=== PATIENT | male | born 1945 | race Caucasian/White ===

== ENCOUNTER 2016-11-02 22:41 | Emergency (ER) | payer MEDICARE ==
[2016-11-03 00:19] VITALS: BP 145/75
[2016-11-03] MEDS ORDERED: MOTRIN PO ONE (02:12)
[2016-11-03] MEDS ORDERED: TYLENOL PO ONE (02:18)
[2016-11-03] MEDS ORDERED: TYLENOL ONE (02:23)
--- NOTE | 2016-11-03 02:36 | Emergency Department Report ---
HPI - General Chief Complaint: Allergic Reaction Time Seen by Provider: 11/03/16 01:34 ED Past Medical Hx - Social History Smoking Status: Never Smoker Substance Use Type: None - Medications Home Medications: Home Medications Medication Instructions Recorded Confirmed Last Taken Type Cephalexin [Keflex] 500 mg PO Q12HR #10 cap 11/03/16 Unknown Rx EPINEPHrine (NF) [Epipen (Nf)] 0.3 mg IM ONCE PRN #1 syringekit 11/03/16 Unknown Rx Ibuprofen [Motrin] 600 mg PO Q8H PRN #20 tablet 11/03/16 Unknown Rx diphenhydrAMINE [Benadryl CAP] 25 mg PO Q6HR PRN #20 capsule 11/03/16 Unknown Rx ED Review of Systems ROS: Stated complaint: WASP STING Other details as noted in HPI Physical Exam - Physical Exam Vital Signs: Vital Signs 11/02/16 11/03/16 22:53 00:18 Temperature 98.0 F 97.8 F Pulse Rate 75 68 Respiratory 18 17 Rate Blood Pressure 114/63 Blood Pressure 145/75 [Left] O2 Sat by Pulse 97 98 Oximetry ED Course Vital Signs 11/02/16 11/03/16 22:53 00:18 Temperature 98.0 F 97.8 F Pulse Rate 75 68 Respiratory 18 17 Rate Blood Pressure 114/63 Blood Pressure 145/75 [Left] O2 Sat by Pulse 97 98 Oximetry Critical care attestation.: If time is entered above; I have spent that time in minutes in the direct care of this critically ill patient, excluding procedure time. ED Disposition Clinical Impression: Wasp sting Qualifiers: Encounter type: initial encounter Injury intent: accidental or unintentional Qualified Code(s): T63.461A - Toxic effect of venom of wasps, accidental ( unintentional), initial encounter Disposition: DC-01 TO HOME OR SELFCARE Is pt being admited?: No Does the pt Need Aspirin: No Condition: Stable Instructions: Insect Bite or Sting (ED) Prescriptions: Cephalexin [Keflex] 500 mg PO Q12HR #10 cap diphenhydrAMINE [Benadryl CAP] 25 mg PO Q6HR PRN #20 capsule PRN Reason: Itching EPINEPHrine (NF) [Epipen (Nf)] 0.3 mg IM ONCE PRN #1 syringekit PRN Reason: Anaphylaxis Ibuprofen [Motrin] 600 mg PO Q8H PRN #20 tablet PRN Reason: Pain Referrals: [facility] [Provider Group] - 3-5 Days [facility] [Outside] - 3-5 Days Forms: Work/School Release Form(ED) Time of Disposition: 02:12
== END 2016-11-03 02:21 | disposition home or self-care (01) ==
LOC: ED 22:41
DX: T63.461A Toxic effect of venom of wasps, accidental (unintentional), initial encounter (principal); X58.XXXA Exposure to other specified factors, initial encounter
CPT/HCPCS: 99282

== ENCOUNTER 2017-02-09 09:21 | Day surgery (SDC) | payer MEDICARE ==
[2017-02-08 09:34] LABS: Basophils % (Auto) 0.2 % (0.0-1.8); Eosinophils % (Auto) 2.8 % (0.0-4.3); Hematocrit 45.6 % (35.5-45.6); Hemoglobin 15.2 gm/dl (11.8-15.2); Mean Corpuscular HGB Conc 33 % (32-34); Mean Corpuscular Hemoglobin 30 pg (28-32); Mean Corpuscular Volume 90 fl (84-94); Platelet Count 180 K/mm3 (140-440); Red Blood Count 5.08 M/mm3 (3.65-5.03); Red Cell Distribution Width 14.2 % (13.2-15.2)
--- NOTE | 2017-02-08 09:43 | Anesthesia Consultation ---
Anesthesia Consult and Med Hx Date of service: 02/08/17 - Airway Anesthetic Teeth Evaluation: Poor ROM Head & Neck: Adequate Mental/Hyoid Distance: Adequate Mallampati Class: Class II Intubation Access Assessment: Probably Good - Pulmonary Exam CTA: Yes - Cardiac Exam Cardiac Exam: RRR - Pre-Operative Health Status ASA Pre-Surgery Classification: ASA2 Proposed Anesthetic Plan: General (no previous anesthesia - no one in family ever had anesthesia) - Cardiovascular System Hx Hypertension: Yes (takes beat gerri; pt told to take AM of surgery) Hx Coronary Artery Disease: No (EF 55%, clearance at low risk for cardiac event , mild mitral regurg) - Central Nervous System Hx Neuromuscular Disorder: No (BPH ) Hx Psychiatric Problems: No - Gastrointestinal Hx Gastroesophageal Reflux Disease: Yes - Endocrine Hx Hypothyroidism: Yes ( not on meds) - Other Systems Hx Alcohol Use: No Hx Substance Use: No Hx Cancer: No
[2017-02-08 10:02] LABS: Anion Gap 17 mmol/L; BUN/Creatinine Ratio 24; Blood Urea Nitrogen 19 mg/dL (9-20); Calcium 9.1 mg/dL (8.4-10.2); Carbon Dioxide 26 mmol/L (22-30); Chloride 101.4 mmol/L (98-107); Glucose 129 mg/dL (75-100); Potassium 4.4 mmol/L (3.6-5.0); Sodium 140 mmol/L (137-145)
[~2017-02-09 09:21] MED LIST: DIPRIVAN 10 MG/ML IV ONE; NACL 0.9% 1000 ML 1,000 ML IV SCH; PEPCID IV NR; ZOFRAN ONE
[2017-02-09] MEDS ORDERED: ANCEF/STERILE WATER 2 GM/20 ML 2 GM/20 ML SYRINGE IV NR (11:00)
[2017-02-09] MEDS ORDERED: ceFAZolin 2 GM in NACL 0.9% 100 ML IV ONE (11:00)
[2017-02-09] MEDS ORDERED: XYLOCAINE MPF 2% ONE (11:20)
[2017-02-09] MEDS ORDERED: SUBLIMAZE ONE (11:21)
[2017-02-09] MEDS ORDERED: ZEMURON IV ONE (11:22)
--- NOTE | 2017-02-09 11:27 | Anesthesia Day of Surgery ---
Anesthesia Day of Surgery - Day of Surgery Patient Examined: Yes Patient H&P Reviewed: Yes Patient is NPO: Yes Beta Blockers: Yes
[2017-02-09] MEDS ORDERED: MARCAINE 0.5% 30 ML INFILTRATI ONE (11:33)
[2017-02-09] MEDS ORDERED: MORPHINE IV PRN (11:34)
[2017-02-09] MEDS ORDERED: TORADOL IV PRN (11:34)
[2017-02-09] MEDS ORDERED: NACL 0.9% IR ONE (11:45)
[2017-02-09] MEDS ORDERED: MARCAINE 0.5% INFILTRATI ONE ×2 (11:45)
[2017-02-09] MEDS ORDERED: DECADRON ONE (12:21)
[2017-02-09] MEDS ORDERED: ZOFRAN ONE (12:22)
[2017-02-09] MEDS ORDERED: NEOSTIGMINE ONE (12:22)
[2017-02-09] MEDS ORDERED: ROBINUL ONE ×2 (12:23→12:57)
[2017-02-09] MEDS ORDERED: NACL 0.9% 1000 ML 1,000 ML ONE (12:58)
--- NOTE | 2017-02-09 13:00 | Discharge Summary ---
Short Stay Discharge Plan Activity: other (observe x 4 hrs then june d/c if stable and able to void. cl liq no carbonated today. solid diet in am. keep dressings dry x 5 days. scrotal support x 3 days. ice pack L groin x 6 hrs. no lifting over 5 lbs x 3 wks) Weight Bearing Status: Partial Weight Bearing Diet: other Wound: keep clean and dry Additional Instructions: surfak stool softener. I po q am x 3 aleve I po q 6-8 hrs for breakthrough pain Follow up with: KARSON BAKER MD [Staff Physician] - 7 Days
--- NOTE | 2017-02-09 13:40 | Post Anesthesia Evaluation ---
- Post Anesthesia Evaluation Patient Participated: Yes Airway Patent: Yes Stable Respiratory Function: Yes Nausea/Vomiting: No Temp > 96.8F: Yes Pain Manageable: Yes Adequeate Hydration: Yes Anesthesia Complications: No Block Receding Appropriately: Not Applicable Patient on Ventilator: No
--- NOTE | 2017-02-09 14:17 | Operative Report ---
PREOPERATIVE DIAGNOSIS: Left inguinal hernia. POSTOPERATIVE DIAGNOSIS: Left inguinal hernia. PROCEDURE: Open left inguinal hernia repair with mesh. SURGEON: Pancho Gutierrez M.D. ANESTHESIA: General. ESTIMATED BLOOD LOSS: Minimal. DRAINS: None. COMPLICATIONS: None. DESCRIPTION OF PROCEDURE: The patient was taken up to the operating room and prepped and draped in usual sterile fashion. Incision was made using his landmarks anterior superior iliac spine and pubic tubercle. Incision was carried down to the external oblique fascia. External oblique fascia was transected down to the external inguinal ring. Cord was then identified and isolated with a Neyda drain. Indirect hernia sac was identified. Sac was dissected free from surrounding cord structures and high ligated with a pursestring 2-0 silk suture. The area was irrigated copiously and dried. Checked for hemostasis and noted to be dry. A keyhole Marlex mesh was then used to reinforce the inguinal canal floor. The mesh was tacked inferiorly to Fredrick's ligament. Medially, the mesh was secured to the transversalis fascia with #1 Nurolon and laterally to the iliopubic tract. The area was then once again irrigated copiously and dried. Checked for hemostasis and noted to be dry. The cord was then on laid over the mesh. All cord structures including the ilioinguinal nerve were identified and confirmed to be intact. External oblique fascia was then closed over the cord with running 3-0 Vicryl suture. Subcutaneous tissues irrigated and skin closed with madison. A 0.5% Marcaine was infiltrated over the fascia, subcutaneous, and skin for postoperative pain relief. Ilioinguinal nerve block was also performed. The patient tolerated the procedure well and left OR in stable condition. JOB# [id number] FP/NTS
[2017-02-09 17:15] VITALS: BP 127/69
== END 2017-02-09 17:15 | disposition home or self-care (01) ==
LOC: OR 09:21
PROVIDERS: ATTEND Surgery
DX: K40.90 Unilateral inguinal hernia, without obstruction or gangrene, not specified as recurrent (principal); K21.9 Gastro-esophageal reflux disease without esophagitis; N40.0 Benign prostatic hyperplasia without lower urinary tract symptoms; I10 Essential (primary) hypertension; E03.9 Hypothyroidism, unspecified; Z79.899 Other long term (current) drug therapy
CPT/HCPCS: 36415; 49505; 80048; 85025; 88302; C1781; J0690; J1100; J2405; J2704; J2710; J3010; J7030

== ENCOUNTER 2017-06-01 13:16 | Outpatient (CLI) | payer MEDICARE ==
--- NOTE | 2017-06-01 14:14 | XRay Report ---
CHEST 2 VIEWS INDICATION: Chest pain. COMPARISON: 10/15/2010 FINDINGS: PA and lateral chest radiographs again demonstrate normal cardiomediastinal silhouette. Mild aortic knob calcifications. Right hemidiaphragm minimally elevated. Mild multilevel imaged spinal degenerative spurring. CONCLUSION: No acute chest process or significant interval change, as described. Thank you for the opportunity to participate in this patient's care.
== END 2017-06-01 13:17 | disposition home or self-care (01) ==
LOC: XRAY 13:16
DX: J98.6 Disorders of diaphragm (principal); I70.0 Atherosclerosis of aorta; R07.9 Chest pain, unspecified; M53.84 Other specified dorsopathies, thoracic region; I10 Essential (primary) hypertension; K21.9 Gastro-esophageal reflux disease without esophagitis; E03.9 Hypothyroidism, unspecified
CPT/HCPCS: 71046

== ENCOUNTER 2020-01-20 06:47 | Day surgery (SDC) | payer MEDICARE ==
[2020-01-20] MEDS ORDERED: ASPIRIN EC 325 MG TAB PO ONE (07:30)
[2020-01-20] MEDS ORDERED: SODIUM CHLORIDE 0.9% 500 ML 500 ML IV SCH (08:00)
[2020-01-20 08:17] LABS: Basophils % (Auto) 0.4 % (0.0-1.8); Eosinophils # (Auto) 0.6 K/mm3 (0.0-0.4); Eosinophils % (Auto) 8.6 % (0.0-4.3); Hematocrit 40.9 % (35.5-45.6); Hemoglobin 13.8 gm/dl (11.8-15.2); Lymphocytes # (Auto) 1.6 K/mm3 (1.2-5.4); Mean Corpuscular HGB Conc 34 % (32-34); Mean Corpuscular Volume 89 fl (84-94); Monocytes # (Auto) 0.5 K/mm3 (0.0-0.8); Monocytes % (Auto) 7.3 % (0.0-7.3); Platelet Count 188 K/mm3 (140-440); Red Blood Count 4.57 M/mm3 (3.65-5.03); Red Cell Distribution Width 14.4 % (13.2-15.2)
[2020-01-20 08:29] LABS: Partial Thromboplastin Time 31.2 Sec. (24.2-36.6)
[2020-01-20] MEDS ORDERED: HEPARIN/NS 5000 UNIT/500ML 1,000 ML IR ONE (08:30)
[2020-01-20 08:32] LABS: Blood Urea Nitrogen 16 mg/dL (9-20); Hemolysis Index 33
[2020-01-20 08:53] LABS: BUN/Creatinine Ratio 23
[2020-01-20] MEDS: fentaNYL 100 MCG/2 ML INJ ONE ×2 (11:51→11:54)
[2020-01-20] MEDS: MIDAZOLAM 2 MG/2 ML INJ ONE ×2 (11:51→11:54)
[2020-01-20] MEDS: LIDOCAINE (2%) 20 MG/1 ML VIAL 20 ML MDV INFILTRATI ONE ×2 (11:52→11:56)
[2020-01-20] MEDS: HEPARIN 10,000 UNITS/10 ML VIAL ONE ×2 (11:52→11:58)
[2020-01-20] MEDS: VERAPAMIL 5 MG/2 ML INJ ONE ×2 (11:52→11:58)
[2020-01-20] MEDS: NITROGLYCERIN SYRINGE 3 ML ONE ×2 (11:53→11:58)
--- NOTE | 2020-01-20 12:47 | Event Note ---
Date: 01/20/20 Patient underwent outpatient cardiac catheterization, please see dictated report for details. We found severe three-vessel coronary artery disease including a significant stenosis of the distal left main. The patient is recommended for transfer to [place] for coronary artery bypass.
[2020-01-20] MEDS ORDERED: traMADol 50 MG TAB PO PRN (12:50)
[2020-01-20] MEDS ORDERED: HYDROcodone/ACETAMINOPHEN 5-325 MG TAB PO PRN (12:50)
--- NOTE | 2020-01-20 12:50 | Discharge Summary ---
Short Stay Discharge Plan Activity: other (Bedrest) Diet: low fat, low cholesterol, low salt, diabetic Wound: keep clean and dry Special Instructions: no heavy lifting (3 days) Follow up with: BELEN CHACKO MD [Primary Care Provider] - 7 Days MARIAH LARSEN MD [Staff Physician] - 7 Days
[2020-01-20] MEDS ORDERED: SODIUM CHLORIDE 0.9% 1000 ML 1,000 ML IV SCH (13:00)
--- NOTE | 2020-01-20 13:11 | Cardiac Catherization Report ---
CARDIAC CATHETERIZATION REPORT REASON FOR PROCEDURE: Chest pain and abnormal thallium. PROCEDURES: 1. Left heart catheterization. 2. Selective left and right coronary angiography. 3. Left ventricular angiography. 4. Sedation time, start 1154 hours, end 1221 hours. I personally supervised the moderate sedation protocol for the entire procedure. The patient was prepped and draped in a sterile fashion after informed consent. The right radial cath site was prepped and draped after a negative Juan C's test. The right radial artery was entered using Seldinger technique followed by placement of a 6-Bhutanese hydrophilic sheath. Routine radial cocktail was administered via the sheath. Selective left and right coronary angiography was performed using a #4 right Dilcia catheter, and a Kayden catheter. A pigtail catheter was used for left ventricular angiography. The catheters were removed, sheath removed, and hemostasis achieved using a TR band. The patient was returned to the postprocedure unit in stable condition. There were no complications. FINDINGS: HEMODYNAMICS: Left ventricular end-diastolic pressure was 13, following coronary angiography. Ascending aortic pressure was 123/62. There was no significant pressure gradient on pullback across the aortic valve. CORONARY ANGIOGRAPHY: There was [id number] calcification of the coronary vessels, chiefly the proximal segments of the left coronary system. The left main coronary artery contained a distal, 60-70% stenosis before its bifurcation into the LAD and circumflex systems. The LAD contained a long segment of disease in its mid portion, which culminated an 80% luminal stenosis. A large mid diagonal branch of the LAD also contained an 80% proximal stenosis extended from its ostium. The circumflex artery contained mild atherosclerosis of its proximal segment. Following that, there was a 99% bifurcation stenosis involving the origin of a large mid obtuse marginal and another large distal obtuse marginal. There was JD grade 2-3 flow down the distal obtuse marginal. The right coronary artery similarly contained severe disease. There was diffuse atherosclerosis of the proximal and mid segments with serial, 60-70% lesions. Following that, there was another, focal 80% stenosis of the distal AV groove midway between the acute margin and the right posterior descending branch. Following that, the posterior descending branch contained another focal, greater than 90% stenosis of its proximal segment. There was normal left ventricular systolic function with ejection fraction of 55%. CONCLUSIONS: 1. Severe 3-vessel coronary artery disease including a 60-70% distal left main stenosis. 2. Normal left ventricular systolic function, ejection fraction 55-60%. RECOMMENDATION: The patient is recommended for coronary artery bypass surgery. JOB# [id number] CA/NTS
[2020-01-20] MEDS ORDERED: NITROGLYCERIN 2% OINT 1 GM TP SCH (14:00)
--- NOTE | 2020-01-20 14:02 | Event Note ---
Date: 01/20/20 Patient refused transfer for CABG, wants to go home and pursue surgery as outpatient. He is here with his daughter and they understand high risk of MD and with untreated severe 3 vessel disease. I will add nitrates, aspirin and atorvastatin to home regimen of metoprolol.
[2020-01-20 16:43] VITALS: BP 145/73
[2020-01-21] MEDS ORDERED: ASPIRIN EC 81 MG TAB PO SCH (10:00)
== END 2020-01-20 06:48 | disposition home or self-care (01) ==
LOC: CATHLABREC 06:47
PROVIDERS: ATTEND Internal Medicine Cardiovascular Disease
DX: R07.89 Other chest pain (principal); R94.39 Abnormal result of other cardiovascular function study; I25.10 Atherosclerotic heart disease of native coronary artery without angina pectoris; I10 Essential (primary) hypertension; K21.9 Gastro-esophageal reflux disease without esophagitis; E03.9 Hypothyroidism, unspecified; Z79.899 Other long term (current) drug therapy; Z79.82 Long term (current) use of aspirin; Z98.890 Other specified postprocedural states
CPT/HCPCS: 36415; 80048; 85025; 85610; 85730; 93005; 93458; 99156; 99157; C1887; C1894; J1644; J2250; J3010; J7040; Q9967